=== PATIENT | female | born 1955 | race Hispanic/Latino ===

== ENCOUNTER 2020-10-17 14:04 | Emergency (ER) | payer OTHER, SELFPAY ==
[2020-10-17 18:27] LABS: Absolute Lymphocytes (CBC) 2.2 K/uL (0.7-4.9); Basophils % 0.8 % (0-1.3); Hematocrit 40.5 % (36.0-45.0); Lymphocytes % 31.6 % (15.3-44.8); MPV 9.6 fL (7.6-11.3); RBC Red Blood Cell Count 4.64 M/uL (3.86-4.86)
[2020-10-17 18:37] LABS: ALT/SGPT 30 U/L (12-78); AST/SGOT 26 U/L (15-37); Albumin 3.9 g/dL (3.4-5.0); Alkaline Phosphatase 67 U/L (45-117); BUN Blood Urea Nitrogen 10 mg/dL (7-18); Bicarbonate 27 mmol/L (21-32); Bilirubin Direct 0.1 mg/dL (0-0.2); Bilirubin Total 0.4 mg/dL (0.2-1.0); Glucose Level 98 mg/dL (74-106); Magnesium 2.1 mg/dL (1.8-2.4); NT PRO-BNP 14 pg/mL (<125); Potassium 3.5 mmol/L (3.5-5.1); Protein, Total 7.8 g/dL (6.4-8.2); Sodium Level 139 mmol/L (136-145); Troponin (Emerg Dept Use Only) < 0.02 ng/mL (0.0-0.045)
--- NOTE | 2020-10-17 18:40 | RAD REPORT ---
EXAM DESCRIPTION: Archie Single View10/17/2020 6:17 pm CLINICAL HISTORY: Chest pain COMPARISON: 2016 FINDINGS: The lungs appear clear of acute infiltrate. The heart is normal size IMPRESSION: No acute abnormalities displayed
[2020-10-17 18:44] LABS: Protime INR 0.94
--- NOTE | 2020-10-17 19:12 | RAD REPORT ---
EXAM DESCRIPTION: CT - Head Brain Wo Cont - 10/17/2020 7:03 pm CLINICAL HISTORY: Weakness COMPARISON: None TECHNIQUE: Computed axial tomography of the head was obtained. IV contrast was not requested. All CT scans are performed using dose optimization technique as appropriate and may include automated exposure control or mA/KV adjustment according to patient size. FINDINGS: An intracranial bleed is not seen . The ventricles are normal in caliber. No extra-axial fluid collection is noted. Fluid within the sinuses/ mastoids is not seen. IMPRESSION: No acute intracranial abnormality is seen. If patient's symptoms persist MRI of the bra in would be recommended.
--- NOTE | 2020-10-17 22:02 | ER ---
Nurse's Notes [facility] Name: Nohemi Flores Age: 65 yrs Sex: Female : 1955 Arrival Date: 10/17/2020 Time: 14:11 Bed 5 Private MD: Diagnosis: Chest pain, unspecified;Malaise and fatigue Presentation: 10/17 14:23 Chief complaint: Patient states: "I just feel very weak and I started to have a pain ss right here (pointing to center of chest). I think I had it at nine in the morning and it just was not going away. I got up to walk and it started subsiding. Pt reports unable to focus vision x "a few days", nausea that began yesterday and extreme fatigue that began this morning. Coronavirus screen: Client denies travel out of the [place] in the last 14 days. Ebola Screen: Patient denies exposure to infectious person. Patient denies travel to an Ebola-affected area in the 21 days before illness onset. Initial Sepsis Screen: Does the patient meet any 2 criteria? No. Patient's initial sepsis screen is negative. Does the patient have a suspected source of infection? No. Patient's initial sepsis screen is negative. Risk Assessment: Do you want to hurt yourself or someone else? Patient reports no desire to harm self or others. Onset of symptoms was October 14, 2020. 14:23 Method Of Arrival: Wheelchair ss 14:23 Acuity: NALLELY 3 ss Triage Assessment: 17:45 General: Appears in no apparent distress. uncomfortable, Behavior is cooperative, bp appropriate for age, anxious. Pain: Complains of pain in chest. EENT: No deficits noted. Neuro: Level of Consciousness is awake, alert, obeys commands, Oriented to Appropriate for age. Cardiovascular: Reports chest pain. Respiratory: No deficits noted. GI: No signs and/or symptoms were reported involving the gastrointestinal system. : No signs and/or symptoms were reported regarding the genitourinary system. Derm: No deficits noted. Musculoskeletal: No deficits noted. Historical: - Allergies: 14:29 Vicodin; ss 14:29 Amoxicillin; ss - PMHx: 14:29 Hypertension; ss - PSHx: 14:29 Cholecystectomy; ss - Immunization history:: Adult Immunizations up to date. - Social history:: Smoking status: Patient denies any tobacco usage or history of. Screenin:45 Abuse screen: Denies threats or abuse. Denies injuries from another. Nutritional bp screening: No deficits noted. Tuberculosis screening: No symptoms or risk factors identified. Fall Risk None identified. Assessment: 17:45 General: SEE TRIAGE NOTE. bp 19:30 Reassessment: Patient appears in no apparent distress at this time. Patient and/or ad5 family updated on plan of care and expected duration. Pain level reassessed. Pain: Denies pain. Neuro: No deficits noted. Cardiovascular: No deficits noted. Respiratory: No deficits noted. GI: No deficits noted. : No deficits noted. Derm: No deficits noted. Musculoskeletal: No deficits noted. 21:05 Reassessment: Patient appears in no apparent distress at this time. No changes from ad5 previously documented assessment. Patient and/or family updated on plan of care and expected duration. Pain level reassessed. Vital Signs: 14:23 BP 131 / 91; Pulse 87; Resp 15; Temp 97.5(TE); Pulse Ox 98% on R/A; Weight 81.19 kg; ss Height 5 ft. 2 in. (157.48 cm); Pain 0/10; 17:56 BP 122 / 77; Pulse 78; Resp 26; Pulse Ox 96% ; bp 19:16 BP 123 / 85; Pulse 71; Resp 18; Pulse Ox 98% on R/A; mg2 20:54 BP 124 / 84; Pulse 76; Resp 15; Pulse Ox 95% on R/A; ad5 22:09 BP 132 / 83; Pulse 70; Resp 18; Temp 98; Pulse Ox 97% ; Pain 0/10; mg2 14:23 Body Mass Index 32.74 (81.19 kg, 157.48 cm) ED Course: 14:11 Patient arrived in ED. am2 14:27 Triage completed. ss 14:29 Arm band placed on right wrist. ss 17:43 Syd Burns, RN is Primary Nurse. bp 17:45 Patient has correct armband on for positive identification. Bed in low position. Call bp light in reach. Side rails up X2. school bus monitor on. Pulse ox on. NIBP on. 17:55 Chrissy Mohamud FNP-C is PHCP. kb 17:55 Zackary Smiley MD is Attending Physician. kb 18:00 Inserted saline lock: 20 gauge in right forearm, using aseptic technique. Blood bp collected. 18:17 XRAY Chest (1 view) In Process Unspecified. EDMS 19:03 CT Head Brain wo Cont In Process Unspecified. EDMS 21:42 Primary Nurse role handed off by Syd Burns, RN tt3 22:09 No provider procedures requiring assistance completed. IV discontinued, intact, mg2 bleeding controlled, No redness/swelling at site. Pressure dressing applied. Patient maintains SpO2 saturation greater than 95% on room air. Administered Medications: No medications were administered Outcome: 22:01 Discharge ordered by MD. kb 22:09 Discharged to home ambulatory, with family. mg2 22:09 Condition: stable 22:09 Discharge instructions given to patient, family, Instructed on discharge instructions, follow up and referral plans. Demonstrated understanding of instructions, follow-up care. 22:09 Patient left the ED. mg2 Signatures: Dispatcher [employer] EDMS Chrissy Mohamud, DEPARTMENT DIRECTOR-C DEPARTMENT DIRECTOR-Anne Muñiz RN RN ss Carolyn Chavez am2 Syd Burns, RN RN bp Shamar Ulrich, KIMBERLY RN mg2 Shay Fletcher tt3 Lorenzo Sheets ad5 Corrections: (The following items were deleted from the chart) 18:12 18:10 Inserted saline lock: 20 gauge in right forearm, using aseptic technique. Blood bp collected. bp
--- NOTE | 2020-10-17 22:03 | EDPHYS ---
Physician Documentation [facility] Name: Nohemi Flores Age: 65 yrs Sex: Female : 1955 Arrival Date: 10/17/2020 Time: 14:11 Bed 5 Private MD: ED Physician Zackary Smiley HPI: 10/17 21:59 This 65 yrs old Female presents to ER via Wheelchair with complaints of Chest kb Pain, General Weakness, Blurred Vision. 22:00 The patient presents with abdominal pain in the epigastric area. Onset: The kb symptoms/episode began/occurred today. The symptoms do not radiate. Associated signs and symptoms: Pertinent positives: nausea last night, fatigue and malaise. The symptoms are described as constant. Modifying factors: The symptoms are alleviated by nothing, the symptoms are aggravated by nothing. Severity of pain: At its worst the pain was moderate in the emergency department the pain is unchanged. The patient has not experienced similar symptoms in the past. The patient has not recently seen a physician. Historical: - Allergies: 14:29 Vicodin; ss 14:29 Amoxicillin; ss - PMHx: 14:29 Hypertension; ss - PSHx: 14:29 Cholecystectomy; ss - Immunization history:: Adult Immunizations up to date. - Social history:: Smoking status: Patient denies any tobacco usage or history of. ROS: 21:58 Cardiovascular: Negative for chest pain, palpitations, and edema, Respiratory: Negative kb for shortness of breath, cough, wheezing, and pleuritic chest pain, MS/Extremity: Negative for injury and deformity, Skin: Negative for injury, rash, and discoloration, Neuro: Negative for headache, weakness, numbness, tingling, and seizure. 21:58 Constitutional: Positive for fatigue, malaise. 21:58 Abdomen/GI: Positive for abdominal pain, of the epigastric area. Exam: 21:59 Constitutional: This is a well developed, well nourished patient who is awake, alert, kb and in no acute distress. Head/Face: Normocephalic, atraumatic. Cardiovascular: Regular rate and rhythm with a normal S1 and S2. No gallops, murmurs, or rubs. No pulse deficits. Respiratory: Respirations even and unlabored. No increased work of breathing, no retractions or nasal flaring. Abdomen/GI: Soft, non-tender. No distention Skin: Warm, dry with normal turgor. Normal color. MS/ Extremity: Pulses equal, no cyanosis. Neurovascular intact. Full, normal range of motion. Neuro: Awake and alert, GCS 15, oriented to person, place, time, and situation. Moves all extremities. Normal gait. 21:59 ECG was reviewed by the Attending Physician. kb Vital Signs: 14:23 BP 131 / 91; Pulse 87; Resp 15; Temp 97.5(TE); Pulse Ox 98% on R/A; Weight 81.19 kg; ss Height 5 ft. 2 in. (157.48 cm); Pain 0/10; 17:56 BP 122 / 77; Pulse 78; Resp 26; Pulse Ox 96% ; bp 19:16 BP 123 / 85; Pulse 71; Resp 18; Pulse Ox 98% on R/A; mg2 20:54 BP 124 / 84; Pulse 76; Resp 15; Pulse Ox 95% on R/A; ad5 22:09 BP 132 / 83; Pulse 70; Resp 18; Temp 98; Pulse Ox 97% ; Pain 0/10; mg2 14:23 Body Mass Index 32.74 (81.19 kg, 157.48 cm) ss MDM: 17:56 Patient medically screened. kb 21:58 Data reviewed: vital signs, nurses notes. Data interpreted: Pulse oximetry: on room air kb is 95 %. Interpretation: normal. Counseling: I had a detailed discussion with the patient and/or guardian regarding: the historical points, exam findings, and any diagnostic results supporting the discharge/admit diagnosis, lab results, radiology results, the need for outpatient follow up, a family practitioner, to return to the emergency department if symptoms worsen or persist or if there are any questions or concerns that arise at home. 05 17:56 Order name: Basic Metabolic Panel bp 10/17 17:56 Order name: CBC with Diff bp 10/17 17:56 Order name: LFT's bp 10/17 17:56 Order name: Magnesium bp 10/17 17:56 Order name: NT PRO-BNP; Complete Time: 18:44 bp 10/17 17:56 Order name: PT-INR; Complete Time: 18:58 bp 10/17 17:56 Order name: Troponin (emerg Dept Use Only); Complete Time: 18:44 bp 05/04 17:56 Order name: XRAY Chest (1 view); Complete Time: 18:44 bp 04 17:56 Order name: Basic Metabolic Panel; Complete Time: 18:44 EDMS 04 17:56 Order name: CBC with Automated Diff; Complete Time: 18:44 EDMS 04 17:56 Order name: Liver (Hepatic) Function; Complete Time: 18:44 EDMS 04 17:56 Order name: Magnesium; Complete Time: 18:44 EDMS 04 21:14 Order name: Troponin (emerg Dept Use Only) kb 10/17 21:15 Order name: Troponin (Emerg Dept Use Only); Complete Time: 22:01 EDMS 10/17 17:47 Order name: EKG; Complete Time: 17:47 ld1 10/17 17:47 Order name: EKG - Nurse/Tech; Complete Time: 17:47 ld1 10/17 17:56 Order name: Cardiac monitoring; Complete Time: 17:56 bp 10/17 17:56 Order name: IV Saline Lock; Complete Time: 18:13 bp 04 17:56 Order name: Labs collected and sent; Complete Time: 18:13 bp 04 17:56 Order name: O2 Per Protocol; Complete Time: 17:56 bp 04 17:56 Order name: O2 Sat Monitoring; Complete Time: 17:56 bp 04 18:44 Order name: CT Head Brain wo Cont; Complete Time: 19:22 kb 10/17 21:14 Order name: EKG - Nurse/Tech; Complete Time: 21:41 kb 10/17 21:14 Order name: EKG; Complete Time: 21:15 kb EC:59 Rate is 65 beats/min. Rhythm is regular. QRS [place] is Normal. MA interval is normal at kb 158 msec. QRS interval is normal at 76 msec. QT interval is normal at 414 msec. Administered Medications: No medications were administered Disposition: 10/18 11:31 Co-signature as Attending Physician, Zackary Smiley MD I agree with the assessment and josé miguel plan of care. Disposition: 10/17/20 22:01 Discharged to Home. Impression: Chest pain, unspecified, Malaise and fatigue. - Condition is Stable. - Discharge Instructions: Fatigue, Nonspecific Chest Pain, [id number]. - Medication Reconciliation Form, Thank You Letter, Antibiotic Education, Prescription Opioid Use form. - Follow up: Emergency Department; When: As needed; Reason: Worsening of condition. Follow up: Private Physician; When: 2 - 3 days; Reason: Recheck today's complaints, Continuance of care, Re-evaluation by your physician. Signatures: Dispatcher [employer] EDMS CadeKoleChrissy, API PRODUCT MANAGER-C API PRODUCT MANAGER-Ckb Zackary Smiley MD MD cha Smirch, Shelby, KIMBERLY RN Syd Burns RN RN bp Shamar Ulrich RN RN mg2 Zuleika Woods RN RN ld1 Corrections: (The following items were deleted from the chart) 10/17 22:09 22:01 10/17/2020 22:01 Discharged to Home. Impression: Chest pain, unspecified; Malaise mg2 and fatigue. Condition is Stable. Forms are Medication Reconciliation Form, Thank You Letter, Antibiotic Education, Prescription Opioid Use. Follow up: Emergency Department; When: As needed; Reason: Worsening of condition. Follow up: Private Physician; When: 2 - 3 days; Reason: Recheck today's complaints, Continuance of care, Re-evaluation by your physician. kb
[2020-10-17 22:42] VITALS: BP 132/83; TEMP 98; O2SAT 97
--- NOTE | 2020-10-19 07:22 | EKG ---
Test Date: 2020-10-17 Test Time: 21:29:31 Desk Operator: ADAM MEASUREMENT RESULTS: Intervals: Rate: 65 [place]: 158 QRSD: 76 QT: 414 QTc: 430 [place]: P: 18 [place]: 158 QRS: 39 T: 40 INTERPRETIVE STATEMENTS: Normal sinus rhythm Normal ECG Compared to ECG 10/17/2020 14:37:27 No significant changes Electronically Signed On 10-19-20 07:18:23 CDT by Dayo Rodriguez
--- NOTE | 2020-10-19 07:24 | EKG ---
Test Date: 2020-10-17 Test Time: 14:37:27 Bdr: VALERIO MEASUREMENT RESULTS: Intervals: Rate: 67 [place]: 142 QRSD: 70 QT: 388 QTc: 409 [place]: P: 2 [place]: 142 QRS: 34 T: 24 INTERPRETIVE STATEMENTS: Normal sinus rhythm Normal ECG Compared to ECG 10/17/2016 16:16:43 No significant changes Electronically Signed On 10-19-20 07:18:42 CDT by Dayo Rodriguez
== END 2020-10-17 22:09 | disposition home or self-care (01) ==
LOC: ER 14:04
DX: R53.81 Other malaise (principal); R53.83 Other fatigue; R10.13 Epigastric pain; I10 Essential (primary) hypertension; Z88.1 Allergy status to other antibiotic agents; Z88.5 Allergy status to narcotic agent
CPT/HCPCS: 36415; 70450; 71045; 80048; 80076; 83735; 83880; 84484; 85025; 85610; 93005; 99285